=== PATIENT | male | born 1975 | race African-American/Black ===

== ENCOUNTER 2018-04-09 09:52 | Emergency (ER) | payer MEDICAID ==
[~2018-04-09] VITALS: Ht 182.9 cm; Wt 102.5 kg
[~2018-04-09 09:52] MED LIST: ASPIRIN
[2018-04-09 09:54] VITALS: BP 134/82
--- NOTE | 2018-04-09 10:00 | NUR ---
patient ambulated to er bed 6
--- NOTE | 2018-04-09 10:07 | NUR ---
PT COMES TO ED C/O HEADACHE x 2 WEEKS WITH "CHEST COLD" PER PT STATEMENT. PT DENIES SOB OR N/V/DIZZINES AND CP. PT STATES THE TOP OF HIS LEFT FOOT HAS HAD SWELLING SINCE HE STARTED WALKING MORE FREQUENTLY FOR EXERCISE. DENIES INJURY, +CSM TO LEFT FOOT. MINIMAL SWELLING OBSERVED TO METATARSAL AREA OF LEFT FOOT. NAD NOTED/STATED OTHERWISE
[2018-04-09] MEDS ORDERED: KETOROLAC 60 MG/2 ML VIAL IM ONE (10:45)
[2018-04-09 11:36] VITALS: BP 129/84
--- NOTE | 2018-04-09 11:36 | NUR ---
Patient discharged with v/s stable. Written and verbal after care instructions given and explained. Patient alert, oriented and verbalized understanding of instructions. Ambulatory with steady gait. All questions addressed prior to discharge. ID band removed. Patient advised to follow up with PMD. Rx of MOTRIN, PROMETHAZINE,FLONASE given. Patient educated on indication of medication including possible reaction and side effects. Opportunity to ask questions provided and answered.
== END 2018-04-09 11:36 | disposition home or self-care (01) ==
LOC: MED 09:52
DX: S96.911A Strain of unspecified muscle and tendon at ankle and foot level, right foot, initial encounter (principal); J06.9 Acute upper respiratory infection, unspecified; Z88.0 Allergy status to penicillin; Z79.899 Other long term (current) drug therapy; X58.XXXA Exposure to other specified factors, initial encounter; Y93.89 Activity, other specified; Y92.89 Other specified places as the place of occurrence of the external cause; Y99.8 Other external cause status
CPT/HCPCS: 73630; 96372; 99284; J1885; Q0092

== ENCOUNTER 2018-04-24 13:23 | Emergency (ER) | payer MEDICAID ==
[~2018-04-24] VITALS: Ht 182.9 cm; Wt 101.2 kg
[2018-04-24 13:28] VITALS: BP 144/90
[2018-04-24] MEDS: KETOROLAC 60 MG/2 ML VIAL IM ONE (14:42)
[2018-04-24] MEDS: DEXAMETHASONE 10 MG/ML VIAL IM ONE (14:42)
[2018-04-24 14:52] VITALS: BP 139/89
== END 2018-04-24 14:53 | disposition home or self-care (01) ==
LOC: MED 13:23
DX: M10.9 Gout, unspecified (principal); Z88.0 Allergy status to penicillin; Z79.899 Other long term (current) drug therapy
CPT/HCPCS: 96372; 99284; J1100; J1885

== ENCOUNTER 2018-05-14 14:07 | Emergency (ER) | payer MEDICAID ==
[~2018-05-14] VITALS: Ht 182.9 cm; Wt 104.3 kg
[2018-05-14 14:18] VITALS: BP 118/75
[2018-05-14] MEDS ORDERED: KETOROLAC 60 MG/2 ML VIAL IM ONE (14:30)
[2018-05-14] MEDS ORDERED: DEXAMETHASONE 10 MG/ML VIAL IM ONE (14:30)
[2018-05-14 15:00] VITALS: BP 118/75
== END 2018-05-14 15:00 | disposition home or self-care (01) ==
LOC: MED 14:07
DX: M10.9 Gout, unspecified (principal)
CPT/HCPCS: 96372; 99284; J1100; J1885

== ENCOUNTER 2018-08-05 17:14 | Emergency (ER) | payer MEDICAID ==
[~2018-08-05] VITALS: Ht 182.9 cm; Wt 98.4 kg
[2018-08-05 17:18] VITALS: BP 130/74
--- NOTE | 2018-08-05 17:25 | NUR ---
PATIENT PRESENTS TO ED WITH THE CHIEF C/O RT TOE NAIL PAIN . PT STATES PAIN STARTED 5 ADYS AGO: ON AND OFF. DENIES N/V/D; SKIN IS PINK/WARM/DRY; AAOX4 WITH EVEN AND STEADY GAIT; HR EVEN AND REGULAR; PT DENIES ANY FEVER, CP, SOB, OR COUGH AT THIS TIME; PATIENT STATES PAIN OF 5/10 AT THIS TIME; VSS; PATIENT POSITIONED FOR COMFORT; HOB ELEVATED; BEDRAILS UP X2; BED DOWN. ER MD MADE AWARE OF PT STATUS.
[2018-08-05 18:28] VITALS: BP 139/69
--- NOTE | 2018-08-05 18:29 | NUR ---
Patient discharged with v/s stable. Written and verbal after care instructions given and explained. Patient alert, oriented and verbalized understanding of instructions. Ambulatory with steady gait. All questions addressed prior to discharge. ID band removed. Patient advised to follow up with PMD. Rx of ITRACONAZOLE, MOTRIN given. Patient educated on indication of medication including possible reaction and side effects. Opportunity to ask questions provided and answered.
== END 2018-08-05 18:29 | disposition home or self-care (01) ==
LOC: MED 17:14
DX: B35.1 Tinea unguium (principal); I10 Essential (primary) hypertension; Z79.82 Long term (current) use of aspirin
CPT/HCPCS: 11740; 99283

== ENCOUNTER 2018-08-21 10:41 | Emergency (ER) | payer MEDICAID ==
[~2018-08-21] VITALS: Ht 185.4 cm; Wt 99.8 kg
[2018-08-21 10:46] VITALS: BP 135/82
--- NOTE | 2018-08-21 10:50 | NUR ---
43 YO M BIB SELF W/ C/O LEFT FOOT SWELLING AND PAIN W/ EXACERBATION X THIS MORNING. PT HX GOUT, DX 3 MONTHS AGO. PAIN 5/10 THAT RADIATES TO THE THE LEFT ANKLE. DENIES N/V/D/FEVERS. AMBULATORY W/ STEADY GAIT. DENIES TRAUMA TO FOOT. NO NOTABLE SWELLING, OR REDNESS. PT POSITIONED FOR COMFORT, ED MADE AWARE. WILL CONTINUE TO MONITOR HX GOUT, HTN RX YES, UNSURE OF THE NAMES, RECEIVED PRESCRIPTIOS 2 WEEKS AGO FROM HERE
[2018-08-21] MEDS ORDERED: methylPREDNISolone SS 125 MG in WATER STERILE 2 ML IM ONE (11:00)
[2018-08-21] MEDS ORDERED: KETOROLAC 60 MG/2 ML VIAL IM ONE (11:00)
--- NOTE | 2018-08-21 11:00 | NUR ---
DR MARTINES AT BED SIDE FOR PT EVAL
[2018-08-21 11:49] VITALS: BP 131/84
== END 2018-08-21 11:49 | disposition home or self-care (01) ==
LOC: MED 10:41
DX: M10.072 Idiopathic gout, left ankle and foot (principal); I10 Essential (primary) hypertension; Z79.82 Long term (current) use of aspirin
CPT/HCPCS: 96372; 99284; J1885; J2930

== ENCOUNTER 2018-10-27 07:52 | Emergency (ER) | payer MEDICAID ==
[~2018-10-27] VITALS: Ht 182.9 cm; Wt 95.3 kg
[2018-10-27 07:55] VITALS: BP 119/86
[2018-10-27 08:22] VITALS: BP 114/76
== END 2018-10-27 08:22 | disposition home or self-care (01) ==
LOC: MED 07:52
DX: L25.9 Unspecified contact dermatitis, unspecified cause (principal); I10 Essential (primary) hypertension; Z79.82 Long term (current) use of aspirin
CPT/HCPCS: 99283

== ENCOUNTER 2019-01-19 09:35 | Emergency (ER) | payer MEDICAID ==
[~2019-01-19] VITALS: Ht 185.4 cm; Wt 91.2 kg
[2019-01-19 09:35] VITALS: BP 123/77
--- NOTE | 2019-01-19 09:35 | NUR ---
PT AMBULATED TO BED 5
--- NOTE | 2019-01-19 09:40 | NUR ---
PT C/O R AND L UPPER QUADRANT ABD PAIN SINCE THIS AM 10/10 PRESSURE. +DIARRHEA. ABD ROUND, DISTENDED NONTENDER. URINE CUP GIVEN.
--- NOTE | 2019-01-19 09:59 | NUR ---
EDMD AT BEDSIDE PERFORMING MSE
[2019-01-19 10:11] LABS: APPEARANCE,URINE CLEAR (CLEAR); BILIRUBIN,URINE NEGATIVE (NEGATIVE); BLOOD, URINE 1+ (NEGATIVE); COLOR,URINE YELLOW (YELLOW); LEUKOCYTE ESTERASE ,URINE NEGATIVE (NEGATIVE); NITRITE, URINE NEGATIVE (NEGATIVE); UGLUCOSE NEGATIVE (NEGATIVE)
[2019-01-19 10:52] LABS: RBC,URINE 11-20 (MOD) /HPF (0-5); WBC,URINE 0-5 (RARE) /HPF (0-5)
--- NOTE | 2019-01-19 11:03 | NUR ---
Patient discharged with v/s stable. Written and verbal after care instructions given and explained. Patient alert, oriented and verbalized understanding of instructions. Ambulatory with steady gait. All questions addressed prior to discharge. ID band removed. Patient advised to follow up with PMD. Rx of OMEPRAZOLE given. Patient educated on indication of medication including possible reaction and side effects. Opportunity to ask questions provided and answered.
[2019-01-19 11:04] VITALS: BP 105/73
== END 2019-01-19 11:03 | disposition home or self-care (01) ==
LOC: MED 09:35
DX: K29.70 Gastritis, unspecified, without bleeding (principal); I10 Essential (primary) hypertension; R31.29 Other microscopic hematuria; Z88.0 Allergy status to penicillin; Z79.82 Long term (current) use of aspirin
CPT/HCPCS: 81001; 87086; 99283